=== PATIENT | female | born 1940 | race Caucasian/White ===

== ENCOUNTER → 2017-04-02 | Outpatient (CLI) | payer MEDICARE, OTHER ==
[~2017-04-02] MED LIST: /CELE20CA OR; /CELE20CA PO; /OXAZ10CA OR; /PRAV20TA OR; /PRAV20TA PO; /TIOT18INH INH; ACET65TA OR; AMLO10TA OR; ASPI325T PO; ATIV0.5T OR; BUSP10TA2 OR; BUSP10TA2 PO; COLA100C2 OR; ISOS30BRAN OR; KLON0.5T OR; MAGN500T2 OR; MILKSUS OR; PRED10TA2 OR; PRED20TA OR; PRIL20CA OR; SENO8.6T5 PO; VENL25TA OR; VENTAER INH; VICO5TAB OR; ZITH500T OR; ZOCO40TA OR; [UNRECOGNIZED DRUG - OTHER] PO; caltrate PO; clonazepam PO; zolpidem PO
--- NOTE | 2017-04-02 16:07 | REP ---
MRI LUMBAR SPINE WITHOUT CONTRAST: HISTORY: Right iliac pain. CONTRAST: ProHance 14.6 mL. Decreased signal intensity on T2-weighted images is present in the lumbar intervertebral discs. The L2-3 through L5-S1 intervertebral discs are decreased in height. These findings are consistent with disc degeneration. A diffuse disc bulge is present at the L1-2 level. There is minimal compression of the thecal sac. There is hypertrophy of the posterior articulating facets. The L1 nerves exit the neural foramina without compression. A diffuse disc bulge is present at the L2-3 level. There is hypertrophy of the ligamenta flava and posterior articulating facets. These findings produce moderate central canal stenosis. A small right intraforaminal and lateral disc protrusion is present. There is compression of the right L2 nerve in the neural foramen. The left L2 nerve exits the neural foramen without compression. The patient is status post L3 to L5 anterior and posterior spinal fusion. Bone graft material is present anteriorly and metal rods and pedicle screws posteriorly. Metal artifact almost completely obscures the neural arch, spinal canal and neural foramina at the levels of the fusion. A diffuse disc bulge is present at the L3-4 level. There is minimal compression of the thecal sac. The L3 nerves exit the neural foramina without compression. A diffuse disc bulge is present at the L4-5 level. There is minimal compression of the thecal sac. There is hypertrophy of the posterior articulating facets. There are 4 mm of grade 1 spondylolisthesis of L4 on L5. The L4 nerves exit the neural foramina without compression. A diffuse disc bulge and small right paracentral disc protrusion are present at the L5-S1 level. The disc protrusion abuts the thecal sac and right S1 nerve. There is hypertrophy of the posterior articulating facets. There is compression of the L5 nerves in the neural foramina. The conus medullaris is normal in appearance terminating at the level of the L1-2 intervertebral disc. Increased signal intensity on T2-weighted images is present in the endplates of the L3 through L5 vertebral bodies. This represents degenerative change. There is no definite enhancement. IMPRESSION: 1. Diffuse disc bulge at the L1-2 level with minimal thecal sac compression. 2. Moderate central canal stenosis at the L2-3 level secondary to disc bulge, ligamentous and facet hypertrophy. 3. The patient is status post L3 to L5 anterior and posterior spinal fusion. There is grade 1 spondylolisthesis of L4 on L5. Disc bulges with minimal thecal sac compression are present at the L3-4 and L4-5 levels. 4. Diffuse disc bulge and small right paracentral disc protrusion at the L5-S1 level. The disc protrusion abuts the thecal sac and right S1 nerve. There is compression of the L5 nerves in the neural foramina. Signed by Galen Wong MD 04/02/2017 04:09 P
--- NOTE | 2017-04-03 09:52 | REP ---
MRI PELVIS WITH AND WITHOUT CONTRAST: TECHNIQUE: Multiple axial, coronal and sagittal sequences prior to and following the intravenous administration of 14.6 mL of gadolinium. In the right iliac bone, there is an area of ill-defined low signal on T1 and high signal on T2 and STIR images. This is just superior to the hip joint. There is some ill-defined enhancement following the intravenous administration of gadolinium. The findings are nonspecific. No other abnormal marrow signal is seen. No adenopathy is seen in the pelvis. There is a segment of sigmoid colon which demonstrates diffuse thickening and there is mild surrounding high signal edema in the pericolonic fat as well as mild free fluid. The findings could indicate sigmoid diverticulitis. No other pelvic mass is seen. The uterus is unremarkable in appearance with normal thickness of the endometrium. IMPRESSION: Ill-defined low signal on T1 and high signal on T2 in the right iliac bone with some ill-defined enhancement as well. Findings are nonspecific. This could represent a stress fracture versus a neoplastic lesion. Recommend correlation with CT of the pelvis to assess the osseous architecture. There appears to be a segment of the sigmoid colon which is thickened with surrounding inflammatory change and mild free fluid. Findings suggest sigmoid diverticulitis. Recommend CT of the pelvis with oral and IV contrast to assess this portion of the colon. Signed by Guilherme Lr MD 04/04/2017 07:02 P
== END ==
LOC: M RAD 13:20
PROVIDERS: ATTEND Nurse Practitioner Family
DX: M51.06 Intervertebral disc disorders with myelopathy, lumbar region (principal); M48.06 Spinal stenosis, lumbar region; Z98.1 Arthrodesis status; M43.16 Spondylolisthesis, lumbar region; M51.17 Intervertebral disc disorders with radiculopathy, lumbosacral region; R93.5 Abnormal findings on diagnostic imaging of other abdominal regions, including retroperitoneum; Z85.3 Personal history of malignant neoplasm of breast
CPT/HCPCS: 72158; 72197; A9576

== ENCOUNTER → 2017-04-23 | Outpatient (CLI) | payer MEDICARE, OTHER ==
[~2017-04-23] MED LIST changes: +AMBI6.25 PO; +BENA25CA4 PO; +BUPR150T5 PO; +CIPR500T89 PO; +CLON0.5T PO; +FLAG500T PO; +LISI10TA4 PO; +MULT1CHW39 PO; +OXYC1TAB23 PO; +ZOLP6.25 PO
--- NOTE | 2017-04-24 17:10 | REP ---
First in the very whole body PET CT scan: Study is correlated with the MRI of the pelvis dated 03/23/2017. Whole body PET CT scan is performed from skull base to the upper thighs. Head and supraclavicular areas: There is uptake in the tongue, lingual tonsils and submandibular salivary glands. This is likely artifactual uptake. Chest: There are no hypermetabolic foci. Abdomen, pelvis and upper thighs: There are no hypermetabolic foci. Specifically there is no hypermetabolic uptake in the right iliac wing and the location where the abnormal signal was identified on the pelvis MRI. Impression: There are no hypermetabolic foci. The study is performed with 9.0 mCi of F 18 FDG. Signed by Guilherme Rodriguez MD 04/24/2017 05:01 P
== END ==
LOC: M PLARAD 10:05
PROVIDERS: ATTEND Internal Medicine Medical Oncology
DX: C50.919 Malignant neoplasm of unspecified site of unspecified female breast (principal); R93.5 Abnormal findings on diagnostic imaging of other abdominal regions, including retroperitoneum

== ENCOUNTER 2017-04-25 05:22 | Inpatient (IN) | payer MEDICARE, OTHER ==
[~2017-04-25] VITALS: Ht 157.5 cm; Wt 74.0 kg
[~2017-04-25 05:22] MED LIST changes: -AMBI6.25 PO; -BENA25CA4 PO; -BUPR150T5 PO; -CIPR500T89 PO; -CLON0.5T PO; -FLAG500T PO; -LISI10TA4 PO; -MULT1CHW39 PO; -OXYC1TAB23 PO; -ZOLP6.25 PO
[2017-04-25] MEDS ORDERED: MULT1CHW39 PO (05:39)
[2017-04-25] MEDS ORDERED: AMBI6.25 PO (05:39)
[2017-04-25] MEDS ORDERED: diphenhydrAMINE INJ 50MG/ML VIAL (J1200) IV STA (06:40)
[2017-04-25] MEDS ORDERED: MORPHINE 2 MG/ML 1ML SYRINGE IV ONE (06:45)
[2017-04-25] MEDS ORDERED: BENA25CA4 PO (08:59)
[2017-04-25] MEDS ORDERED: LISI10TA4 PO (08:59)
[2017-04-25] MEDS ORDERED: ZOLP6.25 PO (08:59)
[2017-04-25] MEDS ORDERED: CLON0.5T PO (08:59)
[2017-04-25] MEDS ORDERED: BUPR150T5 PO (08:59)
[2017-04-25] MEDS ORDERED: OXYC1TAB23 PO (08:59)
[2017-04-25] MEDS ORDERED: ONDANSETRON 4MG/2ML VIAL (J2405) IV PRN (09:45)
[2017-04-25] MEDS: PANTOPRAZOLE 40MG INJ (PROTONIX) (C9113) IV SCH (10:38)
[2017-04-25] MEDS: LR 1,000 ML IV SCH ×2 (10:39→21:40)
[2017-04-25] MEDS: metroNIDAZOLE 500 MG in APPROPRIATE DILUENT 1 EA IV SCH ×3 (10:52→22:57)
[2017-04-25 11:30] VITALS: BP 143/67
[2017-04-25] MEDS: CIPROFLOXACIN 400 MG in APPROPRIATE DILUENT 1 EA IV SCH (12:07)
[2017-04-25] MEDS: KETOROLAC 30 MG/ML VIAL (J1885) IV PRN ×2 (12:08→21:39)
[2017-04-25 13:45] LABS: BASO % 0.4 % (0.0-1.0); EOS # 0.1 K/mm3 (0.0-0.50); EOS % 1.2 % (0.0-3.0); LARGE UNSTAINED CELL # 0.1 K/mm3 (0.0-0.4); LARGE UNSTAINED CELL % 0.6 % (0.0-4.0); LYMPH # 2.3 K/mm3 (1.5-4.5); LYMPH % 18.3 % (24.0-44.0); MEAN CORPUSCULAR HEMOGLOBIN 29.4 pg (27.0-33.0); MEAN CORPUSCULAR HGB CONC 33.6 g/dl (32.0-36.5); MEAN CORPUSCULAR VOLUME 87.4 fl (80.0-96.0); MONO # 0.5 K/mm3 (0.0-0.8); MONO % 4.3 % (0.0-5.0); NEUTROPHILS # 9.1 K/mm3 (1.8-7.7); NEUTROPHILS % 75.2 % (36.0-66.0); PLATELET COUNT, AUTOMATED 389 k/mm3 (150-450)
[2017-04-25 14:00] VITALS: BP 133/60
[2017-04-25] MEDS: HEPARIN SOD (PORCINE) 5000 UNITS/ML VIAL SC SCH ×2 (14:27→21:40)
[2017-04-25] MEDS: zolPIDEM CR 6.25MG TABLET (AMBIEN CR) PO PRN (21:39)
[2017-04-25] MEDS: SENOKOT S TAB PO SCH (21:39)
[2017-04-25] MEDS: clonazePAM 0.5 MG TAB PO SCH (21:39)
[2017-04-25 22:00] VITALS: BP 163/64
[2017-04-26] MEDS: CIPROFLOXACIN 400 MG in APPROPRIATE DILUENT 1 EA IV SCH ×2 (00:19→12:22)
[2017-04-26] MEDS: LR 1,000 ML IV SCH (04:50)
[2017-04-26] MEDS: metroNIDAZOLE 500 MG in APPROPRIATE DILUENT 1 EA IV SCH ×4 (04:51→22:39)
[2017-04-26] MEDS: KETOROLAC 30 MG/ML VIAL (J1885) IV PRN ×3 (04:51→22:39)
[2017-04-26 06:00] VITALS: BP 163/85
[2017-04-26] MEDS: HEPARIN SOD (PORCINE) 5000 UNITS/ML VIAL SC SCH ×3 (06:04→21:08)
[2017-04-26 06:45] LABS: MEAN CORPUSCULAR HEMOGLOBIN 30.1 pg (27.0-33.0); MEAN CORPUSCULAR VOLUME 88.5 fl (80.0-96.0); RED CELL DISTRIBUTION WIDTH 12.9 % (11.5-14.5)
[2017-04-26 06:59] LABS: ALBUMIN 2.6 GM/DL (3.2-5.2); ALKALINE PHOSPHATASE 72 U/L (45-117); ALT/SGPT 14 U/L (12-78); ANION GAP 8 MEQ/L (8-16); AST/SGOT 13 U/L (15-37); BILIRUBIN,TOTAL 0.5 MG/DL (0.2-1.0); BLOOD UREA NITROGEN 8 MG/DL (7-18); CALCIUM LEVEL 8.1 MG/DL (8.8-10.2); CARBON DIOXIDE LEVEL 23 MEQ/L (21-32); CHLORIDE LEVEL 108 MEQ/L (98-107); CREATININE FOR GFR 0.68 MG/DL (0.55-1.02); GLOMERULAR FILTRATION RATE > 60.0 (>39); GLUCOSE, FASTING 87 MG/DL (83-110); MAGNESIUM LEVEL 2.3 MG/DL (1.8-2.4); POTASSIUM SERUM 3.9 MEQ/L (3.5-5.1); SODIUM LEVEL 139 MEQ/L (136-145); TOTAL PROTEIN 6.3 GM/DL (6.4-8.2)
[2017-04-26] MEDS: PANTOPRAZOLE 40MG INJ (PROTONIX) (C9113) IV SCH (08:14)
[2017-04-26] MEDS: SENOKOT S TAB PO SCH ×2 (08:15→21:08)
[2017-04-26] MEDS: buPROPion 75 MG TAB PO SCH (08:15)
[2017-04-26] MEDS: clonazePAM 0.5 MG TAB PO SCH ×2 (08:15→21:08)
[2017-04-26] MEDS: LISINOPRIL 10 MG TAB PO SCH (08:17)
[2017-04-26] MEDS: KCL 10MEQ IN D5/0.45NS 1000ML 1,000 ML IV SCH ×2 (10:56→21:09)
[2017-04-26 14:00] VITALS: BP 136/61
--- NOTE | 2017-04-26 20:00 | HPE ---
DATE OF ADMISSION: 04/25/2017 CHIEF COMPLAINT: Abdominal pain. HISTORY OF PRESENT ILLNESS: The patient is 76-year-old female who was seen at [facility] in the afternoon. She was found to have elevated white count over 20,000 as well as left lower quadrant abdominal pain and perforated diverticulitis with abscess on CT scan. She was evaluated by the surgeon there, who felt that she would be a good candidate for interventional radiology and was going to send her to [facility]; however, the patient preferred to be sent here instead, so they called me for admission. I accepted. I saw her in the morning of April 25. She was still having some significant left lower quadrant abdominal pains. No nausea or vomiting. No change in bowel movements. She has been battling with diverticulitis since middle of March. She was on outpatient antibiotics; however, she failed to improve. The reason she came to the emergency room is because she was starting to gradually get worse again. She has had known diverticulosis with episodes of diverticulitis in the past; however, she thinks that her last episode was about 5 years prior to this. She has had previous colonoscopies confirming the diverticulosis. No other recent travels. No fevers at home and no blood in her stool. PAST MEDICAL HISTORY: 1. Diverticulitis. 2. Spinal stenosis. 3. Breast cancer. 4. Hypertension. PAST SURGICAL HISTORY: 1. Cholecystectomy. 2. Bilateral mastectomy. 3. section. ALLERGIES: Contrast media, TYLENOL, CODEINE, GLUCOSAMINE, MORPHINE, OXYCODONE, GABAPENTIN, TRAMADOL, SULFA DRUGS and shellfish. HOME MEDICATIONS: Please see medication reconcilation. REVIEW OF SYSTEMS: Pertinent positives and negatives as stated in the history of present illness (HPI). PHYSICAL EXAMINATION: GENERAL: Alert and oriented times three in no acute distress. VITAL SIGNS: Temperature 97.8, pulse 77, respirations 20, blood pressure 107/58, pulse oximetry 100% on room air. HEENT: Pupils equally round and reactive to light and accommodation. HEART: S1, S2, regular rate and rhythm. LUNGS: Clear to auscultation bilaterally. ABDOMEN: Soft, tender to palpation in the left lower quadrant with localized guarding. No generalized signs of peritonitis. EXTREMITIES: No clubbing, cyanosis, or edema. LABORATORY DATA: White count was 20,000 at [place]; however, it was down to 12 by admission here, hemoglobin 12.6, platelets 389. Lactic acid 1.3. IMAGING STUDIES: CT abdomen and pelvis done in [facility] showed diverticulitis in the sigmoid colon with a contained perforation with a tiny foci of free air. No generalized free air. ASSESSMENT AND PLAN: The patient is a 76-year-old female with complicated diverticulitis with perforation and small abscess. Recommendation is to admit her to the hospital, place her on IV fluids, Cipro and Flagyl. Will resume her home medications. Will monitor her labs, IV fluids, and consult interventional radiology for attempted drainage. Once her pain is improved and her white count returns to normal, she will be started on clear liquid diet. She will be discharged home with low-fiber diet for the next 2 weeks and then will followup with me in the office.
[2017-04-26] MEDS: zolPIDEM CR 6.25MG TABLET (AMBIEN CR) PO PRN (21:08)
[2017-04-26 22:00] VITALS: BP 140/64
[2017-04-27] MEDS: CIPROFLOXACIN 400 MG in APPROPRIATE DILUENT 1 EA IV SCH ×2 (00:31→12:06)
[2017-04-27] MEDS: metroNIDAZOLE 500 MG in APPROPRIATE DILUENT 1 EA IV SCH ×2 (04:12→10:35)
[2017-04-27] MEDS: HEPARIN SOD (PORCINE) 5000 UNITS/ML VIAL SC SCH ×3 (05:31→21:19)
[2017-04-27 06:00] VITALS: BP 137/61
[2017-04-27 07:11] LABS: MEAN CORPUSCULAR HEMOGLOBIN 30.3 pg (27.0-33.0); MEAN CORPUSCULAR HGB CONC 34.3 g/dl (32.0-36.5); MEAN CORPUSCULAR VOLUME 88.3 fl (80.0-96.0); RED CELL DISTRIBUTION WIDTH 12.9 % (11.5-14.5); WHITE BLOOD COUNT 7.6 K/mm3 (4.0-10.0)
[2017-04-27 07:32] LABS: ALBUMIN 2.7 GM/DL (3.2-5.2); ALBUMIN/GLOBULIN RATIO 0.73 (1.00-1.93); ALKALINE PHOSPHATASE 67 U/L (45-117); ALT/SGPT 16 U/L (12-78); ANION GAP 7 MEQ/L (8-16); AST/SGOT 13 U/L (15-37); BILIRUBIN,TOTAL 0.3 MG/DL (0.2-1.0); BLOOD UREA NITROGEN 4 MG/DL (7-18); CALCIUM LEVEL 8.2 MG/DL (8.8-10.2); CARBON DIOXIDE LEVEL 24 MEQ/L (21-32); CHLORIDE LEVEL 110 MEQ/L (98-107); CREATININE FOR GFR 0.65 MG/DL (0.55-1.02); GLOMERULAR FILTRATION RATE > 60.0 (>39); GLUCOSE, FASTING 121 MG/DL (83-110); MAGNESIUM LEVEL 2.2 MG/DL (1.8-2.4); POTASSIUM SERUM 3.4 MEQ/L (3.5-5.1); SODIUM LEVEL 141 MEQ/L (136-145); TOTAL PROTEIN 6.4 GM/DL (6.4-8.2)
[2017-04-27] MEDS ORDERED: PREVNAR 13 VACCINE SYRINGE (CPT CODE:90670) IM ONE (09:00)
[2017-04-27] MEDS: KCL 10MEQ IN D5/0.45NS 1000ML 1,000 ML IV SCH (09:05)
[2017-04-27] MEDS: clonazePAM 0.5 MG TAB PO SCH ×2 (09:06→21:19)
[2017-04-27] MEDS: buPROPion 75 MG TAB PO SCH (09:06)
[2017-04-27] MEDS: SENOKOT S TAB PO SCH ×2 (09:06→21:19)
[2017-04-27] MEDS: LISINOPRIL 10 MG TAB PO SCH (09:06)
[2017-04-27] MEDS: PANTOPRAZOLE 40MG INJ (PROTONIX) (C9113) IV SCH (09:08)
[2017-04-27 14:00] VITALS: BP 147/72
[2017-04-27] MEDS: KETOROLAC 30 MG/ML VIAL (J1885) IV PRN (16:47)
[2017-04-27] MEDS: metroNIDAZOLE (FLAGYL) 500 MG TAB PO SCH (17:58)
[2017-04-27] MEDS: CIPROFLOXACIN 500 MG TAB PO SCH (17:58)
[2017-04-27 22:00] VITALS: BP 167/81
[2017-04-28] MEDS: KCL 10MEQ IN D5/0.45NS 1000ML 1,000 ML IV SCH (00:34)
[2017-04-28] MEDS: metroNIDAZOLE (FLAGYL) 500 MG TAB PO SCH ×2 (00:34→05:49)
[2017-04-28] MEDS: HEPARIN SOD (PORCINE) 5000 UNITS/ML VIAL SC SCH ×2 (05:49→05:51)
[2017-04-28] MEDS: CIPROFLOXACIN 500 MG TAB PO SCH (05:49)
[2017-04-28 06:00] VITALS: BP 148/74
[2017-04-28 06:46] LABS: MEAN CORPUSCULAR HEMOGLOBIN 29.3 pg (27.0-33.0); MEAN CORPUSCULAR HGB CONC 33.2 g/dl (32.0-36.5); MEAN CORPUSCULAR VOLUME 88.2 fl (80.0-96.0); RED CELL DISTRIBUTION WIDTH 12.8 % (11.5-14.5); WHITE BLOOD COUNT 9.7 K/mm3 (4.0-10.0)
[2017-04-28 07:35] LABS: ALBUMIN 2.8 GM/DL (3.2-5.2); ALBUMIN/GLOBULIN RATIO 0.76 (1.00-1.93); ALKALINE PHOSPHATASE 65 U/L (45-117); ALT/SGPT 18 U/L (12-78); ANION GAP 7 MEQ/L (8-16); AST/SGOT 15 U/L (15-37); BILIRUBIN,TOTAL 0.3 MG/DL (0.2-1.0); BLOOD UREA NITROGEN 5 MG/DL (7-18); CALCIUM LEVEL 8.6 MG/DL (8.8-10.2); CARBON DIOXIDE LEVEL 24 MEQ/L (21-32); CHLORIDE LEVEL 108 MEQ/L (98-107); CREATININE FOR GFR 0.71 MG/DL (0.55-1.02); GLOMERULAR FILTRATION RATE > 60.0 (>39); GLUCOSE, FASTING 129 MG/DL (83-110); MAGNESIUM LEVEL 1.9 MG/DL (1.8-2.4); POTASSIUM SERUM 3.6 MEQ/L (3.5-5.1); SODIUM LEVEL 139 MEQ/L (136-145); TOTAL PROTEIN 6.5 GM/DL (6.4-8.2)
[2017-04-28 08:31] VITALS: BP 148/74
[2017-04-28] MEDS: LISINOPRIL 10 MG TAB PO SCH (08:31)
[2017-04-28] MEDS: clonazePAM 0.5 MG TAB PO SCH (08:31)
[2017-04-28] MEDS: buPROPion 75 MG TAB PO SCH (08:31)
[2017-04-28] MEDS: PANTOPRAZOLE 40MG INJ (PROTONIX) (C9113) IV SCH (08:32)
[2017-04-28] MEDS: SENOKOT S TAB PO SCH (08:32)
[2017-04-28] MEDS ORDERED: CIPR500T89 PO (10:39)
[2017-04-28] MEDS ORDERED: FLAG500T PO (10:39)
--- NOTE | 2017-04-29 12:15 | DSES ---
DATE OF ADMISSION: 04/25/2017 DATE OF DISCHARGE: 04/28/2017 ADMISSION DIAGNOSIS: Complicated diverticulitis with perforation and abscess. DISCHARGE DIAGNOSIS: Complicated diverticulitis with perforation and abscess. HOSPITAL COURSE: The patient is a 76-year-old female who was admitted to me from [facility] for possible interventional radiology drainage of a diverticular abscess. However, once she was transferred over here and had interventional radiology review her images and they felt that the abscess was too small to drain, so I kept overnight n.p.o. on IV fluids and antibiotics. By the next day her white count had significantly improved from 20 down to 12. Her pain was improved. She had no more guarding, so I placed her on a clear liquid diet. By the next morning 04/26, she was showing he even more signs of improvement. White count had dropped down again. Abdominal pain was almost completely resolved. She was just mildly tender. No fevers. So she was kept on clear liquid diet. She was ambulating the halls on her own. No bowel movements. No blood in her stool. No complaints. The next morning 04/27 she again was showing signs of improvement. Pain was still present but again better. No nausea, no vomiting. No fevers. She had one bowel movement. Since her pain was not completely gone and we decided to keep her one more day for IV antibiotics. By the morning of 04/28/2017, her white count was down to 9.7. Pain was gone except for deep palpation, tolerating a low residue diet without any problems. Plan was to discharge home and continue with a low residue diet for two more weeks. Continue with Cipro and Flagyl by mouth and she will follow up with me in the office in 2 weeks to see how she is feeling and then potentially increase her back to high fiber diet at that time.
== END 2017-04-28 11:45 | disposition home or self-care (01) | DRG 392 ==
LOC: EDBD 05:22 → M ED 06:17 → M ED INP 09:40 → M MS5PR 11:29
PROVIDERS: ADMIT Surgery; ATTEND Surgery
DX: K57.20 Diverticulitis of large intestine with perforation and abscess without bleeding (principal); I10 Essential (primary) hypertension; Z88.5 Allergy status to narcotic agent; Z88.8 Allergy status to other drugs, medicaments and biological substances; Z91.041 Radiographic dye allergy status; Z91.013 Allergy to seafood; Z85.3 Personal history of malignant neoplasm of breast

== ENCOUNTER 2019-04-08 07:05 | Day surgery (SDC) | payer MEDICARE, OTHER ==
[~2019-04-08] VITALS: Ht 157.5 cm; Wt 81.2 kg
[~2019-04-08 07:05] MED LIST changes: -/CELE20CA OR; -/CELE20CA PO; -/OXAZ10CA OR; -/PRAV20TA OR; -/PRAV20TA PO; -/TIOT18INH INH; +ACETAMINOPHEN 325 MG TAB PO PRN; +AMBI6.25 PO; +ARIC1TAB PO; +BALANCED SALT IRRIGATION SOLUTION 500ML BAG (FOR OR EYE MACHINE) As Ordered ONE; +BENA25CA4 PO; +BUPR150T5 PO; +CEFUROXIME 1MG/0.1ML INTRACAMERAL INJ As Ordered ONE; +CELE1CAP4 OR; +CELE1CAP4 PO; +CIPR-249 PO; +CLON0.5T8 PO; +CYCLOPENTOLATE 2% OPHTH SOLN 2ML BTL OD ONE; +DOXE10CA PO; +FLAG500T PO; +HEALON DUET PRO(HEALON 10MG/ML 0.55ML & HEALON ENDOCOAT 30MG/ML 0.85ML) As Ordered ONE; +LEXA1TAB PO; +LIDOCAINE 1% SDV 5 ML VIAL As Ordered ONE; +LIDOCAINE 3.5 % 1ML OPHTH TOPICAL GEL OU ONE; +LISI10TA4 PO; +METO25TA4 PO; +MIDAZOLAM INJ 2 MG/2 ML VIAL (J2250) As Ordered ONE; +MULT200T7 PO; +NORC1TAB7 PO; +OFLOXACIN 0.3 % (OCUFLOX) OPTH SOL 5ML OD ONE; +OXAZ10CA25 OR; +OXYC1TAB23 PO; +PHENYLEPHRINE 2.5% OPHTH SOL 2ML OD ONE; +PHENYLEPHRINE HCL 10 % OPHTH. SOL 5ML OD PRN; +PRAV1TAB39 OR; +PRAV1TAB39 PO; +PROPARACAINE 0.5% OPHTH SOL 15ML OD PRN; +SPIR1CAP INH; +TROPICAMIDE 1% OPHTH SOLN 2ML OD ONE; +VENL1TAB35 OR; -VENL25TA OR; +VITA200028 PO; +VITAD1000T PO; +ZETI10TA30 PO; +ZOLP6.25 PO; +fentaNYL 100 MCG/2 ML INJECTION (J3010) As Ordered ONE
[2019-04-08] MEDS ORDERED: ACETYLCHOLINE OPHTH SOLN 1% 2ML (MIOCHOL-E) As Ordered ONE (09:03)
[2019-04-08] MEDS ORDERED: PROPARACAINE 0.5% OPHTH SOL 15ML As Ordered ONE (09:30)
[2019-04-08] MEDS ORDERED: KETOROLAC 0.5% OPHTH SOLN OD ONE (09:45)
[2019-04-08] MEDS ORDERED: ONDANSETRON 4MG/2ML VIAL (J2405) IV PRN (09:45)
[2019-04-08] MEDS ORDERED: TRIMETHOBENZAMIDE 300 MG CAP PO PRN (09:45)
[2019-04-08 09:50] VITALS: BP 124/57
--- NOTE | 2019-04-08 09:58 | RO ---
DATE OF PROCEDURE: 04/08/2019 PREPROCEDURE DIAGNOSIS: Age related nuclear cataract right eye. POSTPROCEDURE DIAGNOSIS: Age related nuclear cataract right eye. PROCEDURE: Phacoemulsification and posterior chamber intraocular lens implantation. The lens used was AU00T0, 22.5 diopters. SURGEON: Lindsay Glynn MD TELESCOPE OPERATOR: ANESTHESIA: Topical with sedation. DESCRIPTION OF PROCEDURE: The patient was prepped and draped in the usual fashion. A lid speculum was placed between the lids. The eye was fixated. A stab incision was made to the anterior chamber, and 1% nonpreserved lidocaine was instilled. Then, viscoelastic was instilled. The eye was re-fixated. A 2.75 mm sapphire keratome was used to make a clear corneal temporal limbal incision. Capsulorrhexis was begun with a 30-gauge bent needle and then carried out in a circular fashion with capsulorrhexis forceps. The lens was hydrodissected, and then the phacoemulsification unit was used to make a groove in the nucleus in two meridians. The nucleus was then cracked into four quadrants. Each quadrant was removed with the phacoemulsification unit. Any remaining cortex was removed with the irrigation and aspiration (I and A) unit. Capsular bag was refilled with viscoelastic. A posterior chamber intraocular lens was placed in the capsular bag without difficulty. Any remaining viscoelastic was removed with the I and A unit. The wound was hydrated, and Miochol and cefuroxime were instilled into the anterior chamber. The patient tolerated the procedure well and went to the recovery room in stable condition.
== END 2019-04-08 10:15 | disposition home or self-care (01) ==
LOC: M SDC 07:05
PROVIDERS: ATTEND Ophthalmology
DX: H25.11 Age-related nuclear cataract, right eye (principal); I10 Essential (primary) hypertension; E78.5 Hyperlipidemia, unspecified; K44.9 Diaphragmatic hernia without obstruction or gangrene; M81.0 Age-related osteoporosis without current pathological fracture; Z88.2 Allergy status to sulfonamides; Z88.8 Allergy status to other drugs, medicaments and biological substances; Z79.899 Other long term (current) drug therapy; Z91.041 Radiographic dye allergy status; Z91.013 Allergy to seafood
CPT/HCPCS: 66984; 92015; J2250; J3010; V2632

== ENCOUNTER 2019-04-15 09:10 | Day surgery (SDC) | payer MEDICARE, OTHER ==
[~2019-04-15] VITALS: Ht 157.5 cm; Wt 80.3 kg
[~2019-04-15 09:10] MED LIST changes: -ACETAMINOPHEN 325 MG TAB PO PRN; -CYCLOPENTOLATE 2% OPHTH SOLN 2ML BTL OD ONE; +CYCLOPENTOLATE 2% OPHTH SOLN 2ML BTL OS ONE; -OFLOXACIN 0.3 % (OCUFLOX) OPTH SOL 5ML OD ONE; +OFLOXACIN 0.3 % (OCUFLOX) OPTH SOL 5ML OS ONE; -PHENYLEPHRINE 2.5% OPHTH SOL 2ML OD ONE; +PHENYLEPHRINE 2.5% OPHTH SOL 2ML OS ONE; -PHENYLEPHRINE HCL 10 % OPHTH. SOL 5ML OD PRN; +PHENYLEPHRINE HCL 10 % OPHTH. SOL 5ML OS PRN; -PROPARACAINE 0.5% OPHTH SOL 15ML OD PRN; -TROPICAMIDE 1% OPHTH SOLN 2ML OD ONE; +TROPICAMIDE 1% OPHTH SOLN 2ML OS ONE
[2019-04-15] MEDS ORDERED: hydrALAZINE INJ 20 MG/ML VIAL As Ordered ONE (11:32)
[2019-04-15] MEDS ORDERED: METOPROLOL 5 MG/5 ML VIAL As Ordered ONE (11:36)
[2019-04-15] MEDS ORDERED: ACETYLCHOLINE OPHTH SOLN 1% 2ML (MIOCHOL-E) As Ordered ONE (11:42)
[2019-04-15] MEDS ORDERED: ONDANSETRON 4MG/2ML VIAL (J2405) As Ordered ONE (12:04)
[2019-04-15 12:22] VITALS: BP 150/72
[2019-04-15] MEDS ORDERED: ONDANSETRON 4MG/2ML VIAL (J2405) IV PRN (12:30)
--- NOTE | 2019-04-15 12:52 | RO ---
DATE OF PROCEDURE: 04/15/2019 PREPROCEDURE DIAGNOSIS: Age-related nuclear cataract, left eye. POSTPROCEDURE DIAGNOSIS: Age-related nuclear cataract, left eye. PROCEDURE PERFORMED: Phacoemulsification and posterior chamber intraocular lens implantation, left eye. The lens used was AU00T0 22.0 diopter. SURGEON: Lindsay Glynn MD CHAMBER WORKER: ANESTHESIA: Topical with sedation. DESCRIPTION OF PROCEDURE: The patient was prepped and draped in the usual fashion. A lid speculum was placed between the lids. The eye was fixated. A stab incision was made to the anterior chamber, and 1% nonpreserved lidocaine was instilled. Then, viscoelastic was instilled. The eye was re-fixated. A 2.75 mm sapphire keratome was used to make a clear corneal temporal limbal incision. Capsulorrhexis was begun with a 30-gauge bent needle and then carried out in a circular fashion with capsulorrhexis forceps. The lens was hydrodissected, and then the phacoemulsification unit was used to make a groove in the nucleus in two meridians. The nucleus was then cracked into four quadrants. Each quadrant was removed with the phacoemulsification unit. Any remaining cortex was removed with the irrigation and aspiration (I and A) unit. Capsular bag was refilled with viscoelastic. A posterior chamber intraocular lens was placed in the capsular bag without difficulty. Any remaining viscoelastic was removed with the I and A unit. The wound was hydrated, and Miochol and cefuroxime were instilled into the anterior chamber. The patient tolerated the procedure well and went to the recovery room in stable condition.
== END 2019-04-15 12:38 | disposition home or self-care (01) ==
LOC: M SDC 09:10
PROVIDERS: ATTEND Ophthalmology
DX: H25.12 Age-related nuclear cataract, left eye (principal); N17.9 Acute kidney failure, unspecified; I10 Essential (primary) hypertension; E78.00 Pure hypercholesterolemia, unspecified; K57.32 Diverticulitis of large intestine without perforation or abscess without bleeding; K44.9 Diaphragmatic hernia without obstruction or gangrene; M12.9 Arthropathy, unspecified; M81.0 Age-related osteoporosis without current pathological fracture; F41.9 Anxiety disorder, unspecified; F32.9 Major depressive disorder, single episode, unspecified; Z88.2 Allergy status to sulfonamides; Z88.5 Allergy status to narcotic agent; Z88.8 Allergy status to other drugs, medicaments and biological substances; Z91.013 Allergy to seafood; Z91.041 Radiographic dye allergy status; Z79.899 Other long term (current) drug therapy; Z78.0 Asymptomatic menopausal state; Z85.3 Personal history of malignant neoplasm of breast
CPT/HCPCS: 66984; 92015; J2250; J2405; J3010; V2632

== ENCOUNTER → 2019-09-02 | Outpatient (REF) ==
[~2019-09-02] MED LIST changes: -BALANCED SALT IRRIGATION SOLUTION 500ML BAG (FOR OR EYE MACHINE) As Ordered ONE; -CEFUROXIME 1MG/0.1ML INTRACAMERAL INJ As Ordered ONE; +CHOL100029 PO; -CYCLOPENTOLATE 2% OPHTH SOLN 2ML BTL OS ONE; -HEALON DUET PRO(HEALON 10MG/ML 0.55ML & HEALON ENDOCOAT 30MG/ML 0.85ML) As Ordered ONE; -LIDOCAINE 1% SDV 5 ML VIAL As Ordered ONE; -LIDOCAINE 3.5 % 1ML OPHTH TOPICAL GEL OU ONE; -MIDAZOLAM INJ 2 MG/2 ML VIAL (J2250) As Ordered ONE; -OFLOXACIN 0.3 % (OCUFLOX) OPTH SOL 5ML OS ONE; -PHENYLEPHRINE 2.5% OPHTH SOL 2ML OS ONE; -PHENYLEPHRINE HCL 10 % OPHTH. SOL 5ML OS PRN; -TROPICAMIDE 1% OPHTH SOLN 2ML OS ONE; -VITAD1000T PO; +ZETI10TA16 PO; -ZETI10TA30 PO; -fentaNYL 100 MCG/2 ML INJECTION (J3010) As Ordered ONE
== END ==
LOC: M LAB LCGH 14:21
PROVIDERS: ATTEND Physician Assistant
DX: C44.612 Basal cell carcinoma of skin of right upper limb, including shoulder (principal)